=== PATIENT | male | born 1990 | race Caucasian/White ===

== ENCOUNTER 2018-08-10 14:34 | Inpatient (IN) | payer MEDICAID ==
[~2018-08-10] VITALS: Ht 180.3 cm; Wt 64.0 kg
[2018-08-10 17:18] VITALS: BP 130/76
[2018-08-10] MEDS ORDERED: ZOLPIDEM TARTRATE 10 MG TABLET PO PRN (18:00)
[2018-08-10 18:38] VITALS: BP 113/73
[2018-08-10] MEDS ORDERED: CloNIDine HCL 0.1 MG TABLET PO PRN (19:15)
[2018-08-10] MEDS ORDERED: ONDANSETRON HCL 4 MG TABLET PO PRN (19:15)
[2018-08-10] MEDS ORDERED: PETROLATUM,WHITE 71 GM JELLY TP PRN (19:15)
[2018-08-10] MEDS ORDERED: ACETAMINOPHEN 325 MG TABLET PO PRN (19:15)
[2018-08-10] MEDS ORDERED: DOCUSATE SODIUM 100 MG CAPSULE PO PRN (19:15)
[2018-08-10] MEDS ORDERED: ALBUTEROL SULFATE HFA 90 MCG/PUFF 8 GM INHALER IH PRN (19:15)
[2018-08-10] MEDS ORDERED: IBUPROFEN 400 MG TABLET PO PRN (19:15)
[2018-08-10] MEDS ORDERED: LOPERAMIDE HCL 2 MG CAPSULE PO PRN (19:15)
[2018-08-10] MEDS ORDERED: MAGNESIUM HYDROXIDE SUSPENSION 30 ML UDCUP PO PRN (19:15)
[2018-08-10] MEDS ORDERED: GuaiFENesin/D-METHORPHAN [SUGAR-FREE] 200-20MG/10 ML SYRUP UDCUP PO PRN (19:15)
[2018-08-10] MEDS ORDERED: MAG HYDROX/AL HYDROX/SIMETH ES 30 ML SUSPENSION UDCUP PO PRN (19:15)
[2018-08-10] MEDS: LORazepam 2 MG TABLET PO PRN (19:56)
[2018-08-11 02:29] VITALS: BP 133/66
[2018-08-11 07:29] LABS: BASOPHILS % (AUTO) 1.5 % (0.0-2.0); EOSINOPHILS % (AUTO) 9.2 % (1.0-6.0); HEMATOCRIT 46.5 % (41-53); HEMOGLOBIN 15.6 g/dL (13.5-17.5); LYMPHOCYTES # (AUTO) 2.1 K/uL (1.0-4.8); LYMPHOCYTES % (AUTO) 35.1 % (22.0-44.0); MEAN CORPUSCULAR HEMOGLOBIN 29.8 pg (26.0-34.0); MEAN CORPUSCULAR HGB CONC 33.6 G/dL (31.0-37.0); MEAN CORPUSCULAR VOLUME 89 fL (80-100); MONOCYTES # (AUTO) 0.5 K/uL (0.1-1.0); MONOCYTES % (AUTO) 7.5 % (2.0-9.0); NEUTROPHILS # (AUTO) 2.8 K/uL (1.8-7.7); NEUTROPHILS % (AUTO) 46.7 % (40.0-70.0); PLATELET COUNT (AUTO) 241 K/uL (150-450); RED BLOOD CELL COUNT(AUTO) 5.24 MIL/uL (4.50-5.90); RED CELL DISTRIBUTION WIDTH 13.5 % (11.5-14.5)
[2018-08-11 08:09] LABS: ALANINE AMINOTRANSFERASE 93 U/L (12-78); ALBUMIN 4.3 g/dL (3.4-5.0); ALKALINE PHOSPHATASE 88 U/L (46-116); ANION GAP 3 mmol/L (8-16); ASPARTATE AMINOTRANSFERASE 59 U/L (15-37); BILIRUBIN,TOTAL 0.4 mg/dL (0.1-1.0); CALCIUM, TOTAL 8.5 mg/dL (8.8-10.5); CARBON DIOXIDE 35 mmol/L (22-29); CHLORIDE 102 mmol/L (98-107); CHOL/HDL RATIO 3.1 (4.2-7.3); CHOLESTEROL 129 mg/dL (131-200); CREATININE 0.88 mg/dL (0.60-1.30); FREE T4 (FREE THYROXINE) 0.75 ng/dL (0.76-1.46); GLOMERULAR FILTR. RATE CALC > 60 mL/min (>60); GLUCOSE,RANDOM 83 mg/dL (70-110); HDL CHOLESTEROL 41 mg/dL (40-60); LDL CHOL (CALC.) 72 mg/dL (0-130); POTASSIUM 4.9 mmol/L (3.5-5.1); SODIUM SERUM 140 mmol/L (136-145); THYROID STIMULATING HORMONE 3.92 uIU/mL (0.36-3.74); TOTAL PROTEIN, SERUM 7.1 g/dL (6.4-8.2); TRIGLYCERIDES 79 mg/dL (15-150); UREA NITROGEN, BLOOD 16 mg/dL (7-18)
[2018-08-11 08:14] LABS: HEMOGLOBIN A1C 5.2 % (4.5-6.2)
[2018-08-11 08:20] VITALS: BP 119/76
[2018-08-11] MEDS: OLANZapine 5 MG TABLET PO SCH ×2 (09:54→16:12)
[2018-08-11 16:10] VITALS: BP 105/66
[2018-08-12 06:09] VITALS: BP 124/80
[2018-08-12 08:17] VITALS: BP 128/80
[2018-08-12] MEDS: OLANZapine 5 MG TABLET PO SCH ×2 (08:19→16:13)
[2018-08-12 16:05] VITALS: BP 104/66
[2018-08-12] MEDS: LORazepam 2 MG TABLET PO PRN (16:13)
[2018-08-12] MEDS: HALOPERIDOL 5 MG TABLET PO PRN (19:23)
[2018-08-13 02:21] VITALS: BP 123/65
[2018-08-13 08:17] VITALS: BP 142/80
[2018-08-13] MEDS: OLANZapine 5 MG TABLET PO SCH (09:00)
[2018-08-13] MEDS: LORazepam 2 MG TABLET PO PRN ×2 (09:05→16:27)
[2018-08-13] MEDS ORDERED: FLUoxetine HCL 20 MG CAPSULE PO SCH (11:00)
[2018-08-13] MEDS ORDERED: OLAN7.5T2 PO (14:13)
[2018-08-13] MEDS ORDERED: FLUO-191 PO (14:13)
[2018-08-13 16:10] VITALS: BP 129/76
[2018-08-13] MEDS: HALOPERIDOL 5 MG TABLET PO PRN (16:28)
[2018-08-13] MEDS ORDERED: OLANZapine 5 MG TABLET PO SCH (17:00)
== END 2018-08-13 19:46 | disposition home or self-care (01) | DRG 750 ==
LOC: B2S 17:55
PROVIDERS: ADMIT Psychiatry & Neurology Psychiatry; ATTEND Psychiatry & Neurology Psychiatry
DX: F20.0 Paranoid schizophrenia (principal); R74.0 Nonspecific elevation of levels of transaminase and lactic acid dehydrogenase [LDH]; E03.9 Hypothyroidism, unspecified; Z91.19 Patient's noncompliance with other medical treatment and regimen; F15.90 Other stimulant use, unspecified, uncomplicated; F41.9 Anxiety disorder, unspecified; Z23 Encounter for immunization
CPT/HCPCS: 80074; 83036; 84439; 84443; 90686

== ENCOUNTER 2018-08-31 19:00 | Inpatient (IN) | payer MEDICAID, OTHER ==
[~2018-08-31] VITALS: Ht 172.7 cm; Wt 63.2 kg
[~2018-08-31 19:00] MED LIST: FLUO-191 PO; OLAN7.5T2 PO
[2018-08-31] MEDS ORDERED: HYDR50CA10 PO (19:54)
[2018-08-31] MEDS ORDERED: PARO10TA89 PO (20:15)
[2018-08-31] MEDS ORDERED: QUET25TA PO (20:15)
[2018-08-31] MEDS ORDERED: CLON2 PO (20:15)
[2018-08-31 20:20] LABS: BASOPHILS % (AUTO) 0.7 % (0.0-2.0); EOSINOPHILS % (AUTO) 2.3 % (1.0-6.0); HEMATOCRIT 45.1 % (41-53); HEMOGLOBIN 15.3 g/dL (13.5-17.5); LYMPHOCYTES # (AUTO) 1.4 K/uL (1.0-4.8); LYMPHOCYTES % (AUTO) 19.1 % (22.0-44.0); MEAN CORPUSCULAR HEMOGLOBIN 29.7 pg (26.0-34.0); MEAN CORPUSCULAR VOLUME 88 fL (80-100); MONOCYTES # (AUTO) 0.5 K/uL (0.1-1.0); MONOCYTES % (AUTO) 6.7 % (2.0-9.0); NEUTROPHILS # (AUTO) 5.1 K/uL (1.8-7.7); NEUTROPHILS % (AUTO) 71.2 % (40.0-70.0); PLATELET COUNT (AUTO) 219 K/uL (150-450); RED BLOOD CELL COUNT(AUTO) 5.15 MIL/uL (4.50-5.90); RED CELL DISTRIBUTION WIDTH 13.3 % (11.5-14.5)
[2018-08-31 20:30] LABS: ANION GAP 5 mmol/L (8-16); CALCIUM, TOTAL 8.4 mg/dL (8.8-10.5); CARBON DIOXIDE 32 mmol/L (22-29); CHLORIDE 103 mmol/L (98-107); CREATININE 0.92 mg/dL (0.60-1.30); GLOMERULAR FILTR. RATE CALC > 60 mL/min (>60); GLUCOSE,RANDOM 90 mg/dL (70-110); POTASSIUM 4.2 mmol/L (3.5-5.1); SODIUM SERUM 140 mmol/L (136-145); UREA NITROGEN, BLOOD 13 mg/dL (7-18)
[2018-08-31 20:36] LABS: ALANINE AMINOTRANSFERASE 91 U/L (12-78); ALBUMIN 4.3 g/dL (3.4-5.0); ALKALINE PHOSPHATASE 80 U/L (46-116); ASPARTATE AMINOTRANSFERASE 39 U/L (15-37); BILIRUBIN,TOTAL 0.4 mg/dL (0.1-1.0); TOTAL PROTEIN, SERUM 7.3 g/dL (6.4-8.2)
[2018-08-31] MEDS ORDERED: LORazepam 2 MG TABLET PO ONE (21:45)
[2018-08-31] MEDS ORDERED: HALOPERIDOL 5 MG TABLET PO ONE (21:45)
[2018-09-01] MEDS ORDERED: LOPERAMIDE HCL 2 MG CAPSULE PO PRN (02:00)
[2018-09-01] MEDS ORDERED: PETROLATUM,WHITE 71 GM JELLY TP PRN (02:00)
[2018-09-01] MEDS ORDERED: IBUPROFEN 400 MG TABLET PO PRN (02:00)
[2018-09-01] MEDS ORDERED: NICOTINE 14 MG/24 HOUR PATCH TD PRN (02:00)
[2018-09-01] MEDS ORDERED: MAGNESIUM HYDROXIDE SUSPENSION 30 ML UDCUP PO PRN (02:00)
[2018-09-01] MEDS ORDERED: GuaiFENesin/D-METHORPHAN [SUGAR-FREE] 200-20MG/10 ML SYRUP UDCUP PO PRN (02:00)
[2018-09-01] MEDS ORDERED: ACETAMINOPHEN 325 MG TABLET PO PRN (02:00)
[2018-09-01] MEDS ORDERED: DOCUSATE SODIUM 100 MG CAPSULE PO PRN (02:00)
[2018-09-01] MEDS ORDERED: CloNIDine HCL 0.1 MG TABLET PO PRN (02:00)
[2018-09-01] MEDS ORDERED: MAG HYDROX/AL HYDROX/SIMETH ES 30 ML SUSPENSION UDCUP PO PRN (02:00)
[2018-09-01] MEDS ORDERED: ALBUTEROL SULFATE HFA 90 MCG/PUFF 8 GM INHALER IH PRN (02:00)
[2018-09-01] MEDS ORDERED: ONDANSETRON HCL 4 MG TABLET PO PRN (02:00)
[2018-09-01 02:27] VITALS: BP 126/88
[2018-09-01 08:39] VITALS: BP 116/71
[2018-09-01] MEDS: PARoxetine HCL 20 MG TABLET PO SCH (13:51)
[2018-09-01] MEDS: FLUoxetine HCL 20 MG CAPSULE PO SCH (13:51)
[2018-09-01] MEDS: QUEtiapine FUMARATE 25 MG TABLET PO SCH (13:51)
[2018-09-01 16:05] VITALS: BP 115/76
[2018-09-01] MEDS: HydrOXYzine PAMOATE 50 MG CAPSULE PO SCH (16:28)
[2018-09-01] MEDS: OLANZapine 10 MG TABLET PO SCH (16:28)
[2018-09-01] MEDS: HALOPERIDOL 5 MG TABLET PO PRN (19:18)
[2018-09-02 04:41] VITALS: BP 122/88
[2018-09-02] MEDS: PARoxetine HCL 20 MG TABLET PO SCH (08:11)
[2018-09-02] MEDS: FLUoxetine HCL 20 MG CAPSULE PO SCH (08:11)
[2018-09-02] MEDS: QUEtiapine FUMARATE 25 MG TABLET PO SCH (08:11)
[2018-09-02] MEDS: HydrOXYzine PAMOATE 50 MG CAPSULE PO SCH ×2 (08:11→16:58)
[2018-09-02] MEDS: OLANZapine 10 MG TABLET PO SCH ×2 (08:12→16:58)
[2018-09-02 16:13] VITALS: BP 116/73
[2018-09-03 04:00] VITALS: BP 116/72
[2018-09-03] MEDS: HydrOXYzine PAMOATE 50 MG CAPSULE PO SCH ×2 (08:15→16:07)
[2018-09-03] MEDS: OLANZapine 10 MG TABLET PO SCH ×2 (08:15→16:08)
[2018-09-03] MEDS: FLUoxetine HCL 20 MG CAPSULE PO SCH (08:15)
[2018-09-03] MEDS: QUEtiapine FUMARATE 25 MG TABLET PO SCH (08:15)
[2018-09-03] MEDS: PARoxetine HCL 20 MG TABLET PO SCH (08:15)
[2018-09-03 08:33] LABS: BASOPHILS % (AUTO) 0.8 % (0.0-2.0); EOSINOPHILS % (AUTO) 7.6 % (1.0-6.0); HEMATOCRIT 45.7 % (41-53); HEMOGLOBIN 15.6 g/dL (13.5-17.5); LYMPHOCYTES # (AUTO) 1.9 K/uL (1.0-4.8); LYMPHOCYTES % (AUTO) 39.6 % (22.0-44.0); MEAN CORPUSCULAR HEMOGLOBIN 29.5 pg (26.0-34.0); MEAN CORPUSCULAR HGB CONC 34.2 G/dL (31.0-37.0); MEAN CORPUSCULAR VOLUME 87 fL (80-100); MONOCYTES # (AUTO) 0.3 K/uL (0.1-1.0); MONOCYTES % (AUTO) 7.2 % (2.0-9.0); NEUTROPHILS # (AUTO) 2.2 K/uL (1.8-7.7); NEUTROPHILS % (AUTO) 44.8 % (40.0-70.0); PLATELET COUNT (AUTO) 219 K/uL (150-450); RED BLOOD CELL COUNT(AUTO) 5.29 MIL/uL (4.50-5.90); RED CELL DISTRIBUTION WIDTH 13.2 % (11.5-14.5)
[2018-09-03 08:37] LABS: HEMOGLOBIN A1C 5.3 % (4.5-6.2)
[2018-09-03 08:54] LABS: APPEARANCE,URINE CLEAR (CLEAR); BILIRUBIN,URINE NEGATIVE (NEGATIVE); GLUCOSE, URINE (UA) NEGATIVE (NEGATIVE); KETONES,URINE NEGATIVE (NEGATIVE); LEUKOCYTE ESTERASE ,URINE NEGATIVE (NEGATIVE); NITRATE,URINE NEGATIVE (NEGATIVE); OCCULT BLOOD,URINE NEGATIVE (NEGATIVE); PROTEIN,URINE NEGATIVE (NEGATIVE); UROBILINOGEN,URINE 0.2 mg/dL (<=1.0)
[2018-09-03 09:01] LABS: ALANINE AMINOTRANSFERASE 69 U/L (12-78); ALBUMIN 4.1 g/dL (3.4-5.0); ALKALINE PHOSPHATASE 75 U/L (46-116); ANION GAP 5 mmol/L (8-16); ASPARTATE AMINOTRANSFERASE 28 U/L (15-37); BILIRUBIN,TOTAL 0.7 mg/dL (0.1-1.0); CALCIUM, TOTAL 8.5 mg/dL (8.8-10.5); CARBON DIOXIDE 32 mmol/L (22-29); CHLORIDE 104 mmol/L (98-107); CHOL/HDL RATIO 3.1 (4.2-7.3); CHOLESTEROL 141 mg/dL (131-200); CREATININE 0.91 mg/dL (0.60-1.30); GLOMERULAR FILTR. RATE CALC > 60 mL/min (>60); GLUCOSE,RANDOM 82 mg/dL (70-110); HDL CHOLESTEROL 46 mg/dL (40-60); LDL CHOL (CALC.) 75 mg/dL (0-130); POTASSIUM 3.7 mmol/L (3.5-5.1); SODIUM SERUM 141 mmol/L (136-145); THYROID STIMULATING HORMONE 3.05 uIU/mL (0.36-3.74); TOTAL PROTEIN, SERUM 7.1 g/dL (6.4-8.2); TRIGLYCERIDES 100 mg/dL (15-150); UREA NITROGEN, BLOOD 12 mg/dL (7-18)
[2018-09-03 16:00] VITALS: BP 125/64
[2018-09-03] MEDS: LORazepam 2 MG TABLET PO PRN (19:23)
[2018-09-04 01:12] VITALS: BP 118/76
[2018-09-04] MEDS: OLANZapine 10 MG TABLET PO SCH ×2 (08:32→16:23)
[2018-09-04] MEDS: HydrOXYzine PAMOATE 50 MG CAPSULE PO SCH ×2 (08:32→16:23)
[2018-09-04] MEDS: FLUoxetine HCL 20 MG CAPSULE PO SCH (08:32)
[2018-09-04 08:54] VITALS: BP 112/63
[2018-09-04] MEDS: HALOPERIDOL 5 MG TABLET PO PRN (19:51)
[2018-09-05] MEDS: LORazepam 2 MG TABLET PO PRN (00:06)
[2018-09-05] MEDS: HALOPERIDOL 5 MG TABLET PO PRN ×2 (00:06→16:45)
[2018-09-05] MEDS: ZOLPIDEM TARTRATE 10 MG TABLET PO PRN (00:06)
[2018-09-05 00:16] VITALS: BP 135/98
[2018-09-05 08:19] VITALS: BP 103/64
[2018-09-05] MEDS: OLANZapine 10 MG TABLET PO SCH ×2 (08:46→16:45)
[2018-09-05] MEDS: FLUoxetine HCL 20 MG CAPSULE PO SCH (08:46)
[2018-09-05] MEDS: HydrOXYzine PAMOATE 50 MG CAPSULE PO SCH ×2 (08:46→16:44)
[2018-09-05 16:19] VITALS: BP 105/61
[2018-09-05] MEDS ORDERED: TRIHEXYPHENIDYL HCL 5 MG TABLET PO ONE (18:15)
[2018-09-06 00:28] VITALS: BP 138/87
[2018-09-06] MEDS: HALOPERIDOL 5 MG TABLET PO PRN ×3 (01:28→18:24)
[2018-09-06] MEDS: ZOLPIDEM TARTRATE 10 MG TABLET PO PRN (01:28)
[2018-09-06 08:29] VITALS: BP 140/80
[2018-09-06] MEDS: DIVALPROEX SODIUM 500 MG ER TABLET PO SCH ×2 (08:59→16:26)
[2018-09-06] MEDS: FLUoxetine HCL 20 MG CAPSULE PO SCH (08:59)
[2018-09-06] MEDS: OLANZapine 10 MG TABLET PO SCH ×2 (08:59→16:26)
[2018-09-06] MEDS: HydrOXYzine PAMOATE 50 MG CAPSULE PO SCH ×2 (08:59→16:26)
[2018-09-06] MEDS: TRIHEXYPHENIDYL HCL 5 MG TABLET PO SCH ×3 (08:59→16:25)
[2018-09-06 16:08] VITALS: BP 105/81
[2018-09-07 04:51] VITALS: BP 139/97
[2018-09-07] MEDS: HALOPERIDOL 5 MG TABLET PO PRN ×2 (05:00→10:02)
[2018-09-07] MEDS: LORazepam 2 MG TABLET PO PRN (05:01)
[2018-09-07] MEDS: OLANZapine 10 MG TABLET PO SCH ×2 (07:58→16:14)
[2018-09-07] MEDS: DIVALPROEX SODIUM 500 MG ER TABLET PO SCH ×2 (08:04→16:14)
[2018-09-07] MEDS: HydrOXYzine PAMOATE 50 MG CAPSULE PO SCH ×2 (08:04→16:13)
[2018-09-07] MEDS: TRIHEXYPHENIDYL HCL 5 MG TABLET PO SCH ×3 (08:04→16:13)
[2018-09-07] MEDS: FLUoxetine HCL 20 MG CAPSULE PO SCH (08:05)
[2018-09-07 08:28] VITALS: BP 110/71
[2018-09-07 16:11] VITALS: BP 138/88
[2018-09-08 06:28] VITALS: BP 119/78
[2018-09-08 07:28] LABS: BASOPHILS % (AUTO) 0.9 % (0.0-2.0); EOSINOPHILS % (AUTO) 5.5 % (1.0-6.0); HEMATOCRIT 44.8 % (41-53); HEMOGLOBIN 15.1 g/dL (13.5-17.5); LYMPHOCYTES # (AUTO) 2.1 K/uL (1.0-4.8); LYMPHOCYTES % (AUTO) 36.2 % (22.0-44.0); MEAN CORPUSCULAR HEMOGLOBIN 29.8 pg (26.0-34.0); MEAN CORPUSCULAR HGB CONC 33.7 G/dL (31.0-37.0); MEAN CORPUSCULAR VOLUME 88 fL (80-100); MONOCYTES # (AUTO) 0.6 K/uL (0.1-1.0); MONOCYTES % (AUTO) 10.7 % (2.0-9.0); NEUTROPHILS # (AUTO) 2.7 K/uL (1.8-7.7); NEUTROPHILS % (AUTO) 46.7 % (40.0-70.0); PLATELET COUNT (AUTO) 204 K/uL (150-450); RED BLOOD CELL COUNT(AUTO) 5.06 MIL/uL (4.50-5.90); RED CELL DISTRIBUTION WIDTH 13.1 % (11.5-14.5)
[2018-09-08 08:05] LABS: ANION GAP 4 mmol/L (8-16); CALCIUM, TOTAL 8.1 mg/dL (8.8-10.5); CARBON DIOXIDE 33 mmol/L (22-29); CHLORIDE 105 mmol/L (98-107); CREATININE 0.92 mg/dL (0.60-1.30); GLOMERULAR FILTR. RATE CALC > 60 mL/min (>60); GLUCOSE,RANDOM 84 mg/dL (70-110); POTASSIUM 4.6 mmol/L (3.5-5.1); SODIUM SERUM 142 mmol/L (136-145); UREA NITROGEN, BLOOD 17 mg/dL (7-18); VALPROIC ACID 44 mcg/mL (50-100)
[2018-09-08] MEDS: TRIHEXYPHENIDYL HCL 5 MG TABLET PO SCH ×3 (08:53→16:43)
[2018-09-08] MEDS: HydrOXYzine PAMOATE 50 MG CAPSULE PO SCH ×2 (08:54→16:43)
[2018-09-08] MEDS: OLANZapine 10 MG TABLET PO SCH ×2 (08:54→16:43)
[2018-09-08] MEDS: DIVALPROEX SODIUM 500 MG ER TABLET PO SCH ×2 (08:56→16:45)
[2018-09-08] MEDS: FLUoxetine HCL 20 MG CAPSULE PO SCH (08:56)
[2018-09-08 09:24] VITALS: BP 110/73
[2018-09-08 16:27] VITALS: BP 130/84
[2018-09-08] MEDS: HALOPERIDOL 5 MG TABLET PO PRN (17:31)
[2018-09-08] MEDS: ZOLPIDEM TARTRATE 10 MG TABLET PO PRN (20:37)
[2018-09-09 06:12] VITALS: BP 128/94
[2018-09-09] MEDS: HALOPERIDOL 5 MG TABLET PO PRN ×2 (06:17→12:42)
[2018-09-09] MEDS: LORazepam 2 MG TABLET PO PRN ×2 (06:17→13:52)
[2018-09-09] MEDS: HydrOXYzine PAMOATE 50 MG CAPSULE PO SCH ×2 (08:10→16:51)
[2018-09-09] MEDS: TRIHEXYPHENIDYL HCL 5 MG TABLET PO SCH ×3 (08:10→16:51)
[2018-09-09] MEDS: DIVALPROEX SODIUM 500 MG ER TABLET PO SCH ×2 (08:10→16:51)
[2018-09-09] MEDS: OLANZapine 10 MG TABLET PO SCH ×2 (08:11→16:51)
[2018-09-09] MEDS: FLUoxetine HCL 20 MG CAPSULE PO SCH (08:11)
[2018-09-09 08:30] VITALS: BP 110/75
[2018-09-09 16:14] VITALS: BP 114/85
[2018-09-09] MEDS: ZOLPIDEM TARTRATE 10 MG TABLET PO PRN (20:32)
[2018-09-10 03:52] VITALS: BP 126/70
[2018-09-10 06:50] VITALS: BP 132/82
[2018-09-10] MEDS: LORazepam 2 MG TABLET PO PRN (06:52)
[2018-09-10] MEDS: HALOPERIDOL 5 MG TABLET PO PRN (06:52)
[2018-09-10 08:30] VITALS: BP 135/70
[2018-09-10] MEDS: DIVALPROEX SODIUM 500 MG ER TABLET PO SCH ×2 (08:43→16:48)
[2018-09-10] MEDS: OLANZapine 10 MG TABLET PO SCH ×2 (08:43→16:48)
[2018-09-10] MEDS: HydrOXYzine PAMOATE 50 MG CAPSULE PO SCH ×2 (08:43→16:48)
[2018-09-10] MEDS: FLUoxetine HCL 20 MG CAPSULE PO SCH (08:43)
[2018-09-10] MEDS: TRIHEXYPHENIDYL HCL 5 MG TABLET PO SCH ×3 (08:43→16:48)
[2018-09-10 16:29] VITALS: BP 140/76
[2018-09-10] MEDS: ZOLPIDEM TARTRATE 10 MG TABLET PO PRN (21:44)
[2018-09-11 01:34] VITALS: BP 136/78
[2018-09-11] MEDS: TRIHEXYPHENIDYL HCL 5 MG TABLET PO SCH ×3 (08:08→16:42)
[2018-09-11] MEDS: FLUoxetine HCL 20 MG CAPSULE PO SCH (08:08)
[2018-09-11] MEDS: DIVALPROEX SODIUM 500 MG ER TABLET PO SCH ×2 (08:09→16:42)
[2018-09-11] MEDS: OLANZapine 10 MG TABLET PO SCH ×2 (08:09→16:43)
[2018-09-11] MEDS: HydrOXYzine PAMOATE 50 MG CAPSULE PO SCH ×2 (08:09→16:43)
[2018-09-11 08:41] VITALS: BP 130/90
[2018-09-11] MEDS ORDERED: FLUO-191 PO (10:55)
[2018-09-11] MEDS ORDERED: TRIH5TAB2 PO (10:55)
[2018-09-11] MEDS ORDERED: OLAN10TA3 PO (10:55)
[2018-09-11] MEDS ORDERED: DIVA500T52 PO (10:55)
[2018-09-11] MEDS ORDERED: HYDR50CA10 PO (10:55)
[2018-09-11 16:00] VITALS: BP 115/65
== END 2018-09-11 22:00 | disposition home or self-care (01) | DRG 750 ==
LOC: EMS 19:01 → B2S 21:30
PROVIDERS: ADMIT Psychiatry & Neurology Child & Adolescent Psychiatry; ATTEND Psychiatry & Neurology Psychiatry
DX: F25.0 Schizoaffective disorder, bipolar type (principal); R74.0 Nonspecific elevation of levels of transaminase and lactic acid dehydrogenase [LDH]; F10.10 Alcohol abuse, uncomplicated; F41.9 Anxiety disorder, unspecified; G47.00 Insomnia, unspecified; F19.10 Other psychoactive substance abuse, uncomplicated; Z71.51 Drug abuse counseling and surveillance of drug abuser; Z71.41 Alcohol abuse counseling and surveillance of alcoholic; Z79.899 Other long term (current) drug therapy
CPT/HCPCS: 80074; 83036; 84439; 84443; 87081; G0480